=== PATIENT | male | born 1960 | race Caucasian/White ===

== ENCOUNTER → 2018-11-18 09:17 | Outpatient (CLI) | payer SELFPAY ==
--- NOTE | 2018-11-18 | DI.ECHO.S_ITS ---
[facility] +---------+ : : [address] : [place] : : : : [id number] : : : : Phone: [phone]+ Echocardiogram Report + + :Name: NASH NAQVI Study Date: 11/18/2018 Height: 70 in : :[facility] Exam Location: [facility] Weight: 180 lb : : Gender: Male BSA: 2.0 m2 : :: 1960 Age: 58 yrs BP: 118/64 mmHg: :Reason For Study: Heart Palpitations : : Performed By: Batsheva Olson : :Referring: BRENNEN MIKE : + + Interpretation Summary Sinus bradycardia. Heartrate is 55-60 beats per minute. Normal LV size and wall thickness. Normal wall motion and left ventricular systolic function. Ejection fraction is 60-65 percent. Mild left atrial enlargement, moderate right atrial enlargement. No significant valvular abnormalities. Compared to prior study April 05, 2017, no changes have occurred. Procedure: A two-dimensional transthoracic echocardiogram with color flow and Doppler was performed. The study quality was technically good. Comparison is made with the echocardiogram of 04/05/2017. The patient was in normal sinus rhythm during the exam. Left Ventricle: The left ventricle is normal in size. There is normal left ventricular wall thickness. The ejection fraction is estimated to be 60-65%. Right Ventricle: The right ventricular systolic function is normal. Atria: The left atrium is mildly dilated. The right atrium is moderately dilated. The interatrial septum is intact with no evidence for an atrial septal defect. Mitral Valve: The mitral valve leaflets appear mildly thickened, but open well. There is mild mitral annular calcification. There is mild mitral regurgitation. Aortic Valve: The aortic valve is trileaflet. The aortic valve opens well. No aortic regurgitation is present. Tricuspid Valve: The tricuspid valve is normal in structure and function. There is a trace or physiologic amount of tricuspid regurgitation. Pulmonary artery pressures cannot be estimated because of the lack of a measurable TR jet velocity. Pulmonic Valve: The pulmonic valve is normal in structure and function. There is a trace or physiologic amount of pulmonic regurgitation. Great Vessels: The ascending aorta is normal in size. The IVC is of normal diameter and collapses greater than 50% with a sniff. This suggests a low right atrial pressure of 3 mm Hg. Pericardium/ Pleura There is no pericardial effusion. There is no pleural effusion. MMode/2D Measurements & Calculations LVIDd: 4.9 cm LVOT diam: 2.2 cm LVIDs: 3.6 cm asc Aorta Diam: 2.9 cm FS: 26.3 % IVSd: 0.87 cm LVPWd: 0.91 cm LV griggs. diameter/BSA (cm/m^2): 2.5 LV sys. diameter/BSA (cm/m^2): 1.8 LA A2 area: 25.9 cm2 RA long axis: 4.8 cm LA A4 area: 21.1 cm2 RA area: 20.3 cm2 LA length (vol): 5.8 cm RA vol: 73.1 ml LA vol: 80.0 ml RA : 36.6 ml/m2 LA vol index: 40.1 ml/m2 IVC diam: 1.6 cm TAPSE: 3.0 cm Doppler Measurements & Calculations Ao V2 max: 170.8 cm/sec LVOT Max Ra: 139.9 cm/sec Ao V2 mean: 106.8 cm/sec LV V1 max P.8 mmHg Ao max P.7 mmHg LV V1 VTI: 27.0 cm Ao mean P.3 mmHg CLIFFORD(I,D): 3.3 cm2 Ao V2 VTI: 32.4 cm CLIFFORD(V,D): 3.2 cm2 sev ratio: 0.84 CLIFFORD indexed to BSA (cm^2/m^2): 1.6 MV E max ra: 72.4 cm/sec PA V2 max: 85.4 cm/sec MV A max ra: 51.4 cm/sec PA V2 mean: 60.0 cm/sec MV E/A: 1.4 PA mean P.6 mmHg Med Peak E' Ra: 9.4 cm/sec PA pr(Accel): 7.5 mmHg E/E' med: 7.7 Lat Peak E' Ra: 12.9 cm/sec E/E' lat: 5.6 E/e' average: 6.7 MV dec time: 0.14 sec SV(LVOT): 105.7 ml Reading Physician:06:36 PM
== END ==
PROVIDERS: PCP Internal Medicine; Visit Provider Internal Medicine Cardiovascular Disease
DX: I34.0 Nonrheumatic mitral (valve) insufficiency (principal); R00.2 Palpitations
CPT/HCPCS: 93306